=== PATIENT | male | born 1995 | race Two or more races ===

== ENCOUNTER 2024-07-26 13:11 | Emergency (ER) | payer MEDICAID, SELFPAY ==
[2024-07-26 13:29] VITALS: BP 134/83; PULSE 69; RESP 16; TEMP 36.5; O2SAT 99; BMI 25.8
--- NOTE | 2024-07-26 13:34 | XR_ITS ---
Examination: CT abdomen and pelvis without contrast. Coronal 3-D reconstructions. Sagittal 2-D reconstructions. Date and time of exam:July 26, 2024 1355 hours INDICATIONS: Onset right lower abdominal pain today CTDI: vol (mGy): 6.36 DLP: (mGycm): 383 Technique: Axial images of the abdomen have been obtained, 3 mm slice thickness Intravenous contrast material has not been administered. Low dose protocols were performed. One or more of the following dose reduction techniques were used; automated exposure control, adjustment of the mA and/or KV according to patient size, use of iterative reconstruction technique. Findings: No focal liver or splenic lesions No gallstones No pancreatic or adrenal mass 4 mm soft calcification mid to lower pole right kidney, coronal image 89 No hydronephrosis or ureteral calculi Aorta normal size Normal appendix No bowel obstruction No bladder calculi No prostatomegaly Osseous structures are intact IMPRESSION: 4 mm soft calculus mid to lower pole right kidney, no hydronephrosis or ureteral calculi Normal appendix
--- NOTE | 2024-07-26 13:34 | PD.EDRME ---
Rapid Medical Screening Exam [facility] Arrival date/time: 07/26/24 13:11 29-year-old male presents emergency department complaint of abdominal pain nausea vomiting x 1 week Chief Complaint: Abdominal Pain Vital signs: Vital Signs Temperature 97.7 F 07/26/24 13:29 Pulse Rate 69 07/26/24 13:29 Respiratory Rate 16 07/26/24 13:29 Blood Pressure 134/83 H 07/26/24 13:29 Pulse Oximetry (%) 99 07/26/24 13:29 Oxygen Delivery Method Room Air 07/26/24 13:29
[2024-07-26] MEDS: ONDANSETRON ODT 4 MG TABRAP PO (14:07)
[2024-07-26 14:37] LABS: Basophils % (Auto) 0 % (0-2.5); Eosinophils % (Auto) 0 % (0-10); Hematocrit 46.7 % (41.0-53.0); Immature Granulocytes % (Auto) 0 % (0-0); Immature Granulocytes Auto 0.01 Thou/mm3 (0.00-0.00); Lymphocytes # (Auto) 1.5 Thou/mm3 (1.0-4.8); Lymphocytes % (Auto) 26 % (10-50); Mean Corpuscular HGB Conc 34.3 g/dl (31.0-37.0); Mean Corpuscular Hemoglobin 31.1 pg (25.0-35.0); Mean Corpuscular Volume 91 fL (80-100); Monocytes # (Auto) 0.5 Thou/mm3 (0.0-0.8); Monocytes % (Auto) 9 % (0-12); Neutrophils # (Auto) 3.6 Thou/mm3 (1.8-7.7); Neutrophils % (Auto) 64 % (37-80); Nucleated Red Blood Cell % 0 /100 WBC (0); Platelet Count 227 Thou/mm3 (140-440); RDW Standard Deviation 41.5 fL (35.1-43.9); Red Blood Count 5.15 Miln/mm3 (4.50-5.90); White Blood Count 5.6 Thou/mm3 (3.8-10.6)
[2024-07-26 14:59] LABS: Collection Type, Urine Clean Catch
[2024-07-26 15:00] LABS: Alanine Aminotransferase 17 U/L (10-49); Albumin, Serum 5.1 gm/dL (3.5-5.0); Albumin/Globulin Ratio 1.9 (1.2-2.2); Alkaline Phosphatase 130 U/L (46-116); Anion Gap 6 (7-16); Aspartate Amino Transferase 16 U/L (0-34); BUN/Creatinine Ratio 11 Ratio (12-20); Bilirubin,Total 0.9 mg/dL (0.3-1.2); Blood Urea Nitrogen 12 mg/dL (9-23); Calcium 9.8 mg/dL (8.3-10.6); Calcium (Corrected) 9.8 mg/dL (8.5-10.1); Carbon Dioxide 30.7 mMol/L (20.0-31.0); Chloride 103 mMol/L (98-107); Creatinine (Component) 1.1 mg/dL (0.6-1.3); Globulin 2.7 gm/dL (2.3-3.5); Glucose 68 mg/dL (74-106); Lipase 33 U/L (12-53); Osmolality,Calculated 277 (275-295); Sodium 140 mMol/L (136-145); Total Protein 7.8 gm/dL (5.7-8.2); eGFR > 60 See Note
[2024-07-26 15:30] LABS: Bilirubin,Urine Negative (Negative); Blood,Urine Negative (Negative); Clarity,Urine Clear (Clear/Hazy); Color,Urine Yellow (Lt Yel-Yel); Culture Indicated,Urine Not Indicated; Glucose, Urine Negative (Negative); Ketones,Urine Negative (Negative); Leukocyte Esterase,Urine Negative (Negative); Nitrite,Urine Negative (Negative); Protein,Urine Trace (Neg - Trace); RBC,Urine 3 /hpf (0-3); Specific Gravity,Urine 1.028 (1.001-1.035); Squamous Epithelial Cell,Urine < 1 /hpf (0-5); Urobilinogen,Urine Negative mg/dL (0.0-1.0); WBC,Urine 2 /hpf (0-5)
[2024-07-26 15:41] LABS: Amphetamine/Methamp Scrn,U Negative (Negative); Barbiturate Screen,Urine Negative (Negative); Benzodiazepines Screen,Urine Negative (Negative); Benzoylecgonine Screen, Ur Negative (Negative); Fentanyl Screen,Urine Negative (Negative); Opiate Screen,Urine Negative (Negative); THC Screen,Urine Positive (Negative)
--- NOTE | 2024-07-26 17:31 | PD.EDRME ---
Rapid Medical Screening Exam RME Arrival date/time: 07/26/24 13:11 07/26/24 13:11 29-year-old male presents emergency department complaint of abdominal pain nausea vomiting x 1 week Chief Complaint: Abdominal Pain Time Seen by Provider: 07/26/24 17:31 Vital signs: Vital Signs Temperature 97.7 F 07/26/24 13:29 Pulse Rate 69 07/26/24 13:29 Respiratory Rate 16 07/26/24 13:29 Blood Pressure 134/83 H 07/26/24 13:29 Pulse Oximetry (%) 99 07/26/24 13:29 Oxygen Delivery Method Room Air 07/26/24 13:29 RME Narrative: 07/26/24 13:11 29-year-old male presents emergency department complaint of abdominal pain nausea vomiting x 1 week
--- NOTE | 2024-07-26 17:36 | PC.NURSE ---
CALLED FROM LOBBY AND NO ANSWER
--- NOTE | 2024-07-26 17:55 | PC.NURSE ---
CALLED FROM LOBBY AND NO ANSWER
--- NOTE | 2024-07-26 19:21 | PC.NURSE ---
CALLED PT IN ER LOBBY AND OUTSIDE OF ER AND NO ANSWER AT THIS TIME.
== END 2024-07-26 19:21 | disposition left against medical advice (07) ==
LOC: SERX 14:12
PROVIDERS: Nurse Practitioner Primary Care; Emergency Provider Emergency Medicine
DX: R10.31 Right lower quadrant pain (principal); R11.2 Nausea with vomiting, unspecified
CPT/HCPCS: 36415; 74176; 80053; 80307; 81001; 83690; 85025; 99281; Q0162

== ENCOUNTER 2024-07-27 12:33 | Emergency (ER) | payer MEDICAID, SELFPAY ==
[2024-07-27 12:49] VITALS: BP 121/74; PULSE 58; RESP 18; TEMP 37; O2SAT 98; BMI 26.6
--- NOTE | 2024-07-27 12:51 | EDNOTE_ITS ---
Nausea/Vomit./Diarrhea-RME/HPI General Chief complaint: Nausea/Vomiting/Diarrhea Stated complaint: havent ate in 3 days. n/v Time Seen by Provider: 07/27/24 12:47 Arrival date/time: 07/27/24 12:33 RME / HPI RME / HPI Narrative: 29-year-old male patient with significant history of marijuana abuse, came in for evaluation regarding nausea and vomiting. Patient's been having worsening nausea vomiting, for the last 3 days, cannot take anything down, and complaining also of right lower quadrant pain for the last 1 to 2 days. Patient told me that he had his symptoms in the past also but have not seen a doctor for this. Denies any fever. Denies any diarrhea. Denies any constipation. Denies any other complaints. No medication was taken prior to arrival. Related Data Previous Rx's ?Medication ?Instructions ?Recorded metoclopramide HCl 10 mg tablet 10 mg PO Q6H PRN nausea and 07/27/24 (Reglan) vomiting #20 tabs pantoprazole 40 mg tablet,delayed 40 mg PO QDAY #30 tabs 07/27/24 release (Protonix) Allergies Allergy/AdvReac Type Severity Reaction Status Date / Time No Known Allergies Allergy Verified 07/27/24 12:35 Review of Systems Review of Systems Narrative Review of Systems: Review of system reviewed and within normal limits except mentioned in HPI ED Exam Narrative Physical exam: VITAL SIGNS: Reviewed. GENERAL APPEARANCE: Alert and interactive, follows commands, no acute distress, HEAD AND FACE: Non-traumatic. ENT: PERRL, pink conjunctivitis, eyelid no trauma, Mucous membrane moist. NECK: Supple, nontender, no nuchal rigidity. CHEST: No tenderness, no crepitus, no paradoxical movement, no retractions. LUNGS: Clear, well ventilated, symmetric, no rales, no wheezing, no ronchi, no stridor, good breath sounds bilaterally. HEART: Regular rate, regular rhythm, no murmur, no gallops. ABDOMEN: Soft, positive bowel sounds, nondistended, no guarding, right lower quadrant tenderness, no rebound, no masses, RECTAL: Deferred. GENITAL: Deferred. NEUROLOGICAL: Gross motor function intact sensory function intact, Appropriate for age. MUSCULOSKELETAL: low back nontender, full range of motion. EXTREMITIES: Nontender, full range of motion. SKIN: Color pink, dry, no rash, no lacerations, no abrasions, no contusions. LYMPHATICS: Deferred. Course Quality Measures none Orders Category Date Time Status CBC Stat Lab 07/27/24 13:08 Completed Comprehensive Metabolic Panel Stat Lab 07/27/24 13:08 Completed Drug Screen,Urine Stat Lab 07/27/24 13:01 Completed Lipase Stat Lab 07/27/24 13:08 Completed Prothrombin Time with INR Stat Lab 07/27/24 13:08 Completed UA, C/S IF [Urinalysis, C/S if Indicated] Stat Lab 07/27/24 13:01 Completed DiphenhydrAMINE INJ [Benadryl Inj] Med 07/27/24 12:51 Discontinued 25 mg IV X1 ONE Famotidine Inj [Pepcid Inj] Med 07/27/24 12:50 Discontinued 20 mg IVP X1 ONE Metoclopramide Inj [Reglan Inj] Med 07/27/24 12:50 Discontinued 10 mg IVP X1 ONE Sodium Chloride 0.9% 1000 ml [Ns] 1,000 ml Med 07/27/24 12:51 Discontinued IV 999 mls/hr Vital Signs Vital signs: Vital Signs Temperature 98.6 F 07/27/24 12:49 Pulse Rate 58 L 07/27/24 12:49 Respiratory Rate 18 07/27/24 12:49 Blood Pressure 121/74 07/27/24 12:49 Pulse Oximetry (%) 98 07/27/24 12:49 Oxygen Delivery Method Room Air 07/27/24 12:49 Nausea/Vomiting/Diarrhea MDM Narrative MDM Narrative:: 29-year-old male patient with significant history of marijuana abuse, came in for evaluation regarding nausea and vomiting. Patient's been having worsening nausea vomiting, for the last 3 days, cannot take anything down, and complaining also of right lower quadrant pain for the last 1 to 2 days. Patient told me that he had his symptoms in the past also but have not seen a doctor for this. Denies any fever. Denies any diarrhea. Denies any constipation. Denies any other complaints. No medication was taken prior to arrival. Patient's workup today all came back unremarkable. I did not pursue with a CT scan of the abdomen and pelvis since this was done yesterday and I reviewed it and it came back unremarkable. Patient was given IV fluids, Benadryl, Pepcid, and Reglan with complete resolution of symptoms. Patient was advised to stop abusing marijuana which could be the reason for his vomiting. Patient agrees with the plan. Patient data External records reviewed:: None Clinical information provided by:: patient Social determinants that could affect healthcare access:: substance use Patient has the following chronic illnesses:: None How is presenting disease/condition affected by chronic disease/condition?: no chronic disease Evaluation data The following diagnostics were reviewed and interpreted by me:: lab results Lab and/or radiology exams considered but not ordered:: None Interpretation Summary: Patient's workup all came back unremarkable Medications / Prescriptions Medications / Prescriptions considered but not ordered:: None Medication administrations:: Medication Administration History Discontinued Medications Diphenhydramine HCl (Diphenhydramine Inj 50 Mg/Ml Vial) 25 mg IV X1 ONE Stop: 07/27/24 12:52 Last Admin: 07/27/24 16:29 Dose: 25 mg Documented By: DOC Famotidine (Famotidine Inj 10 Mg/Ml Vial 2 Ml) 20 mg IVP X1 ONE Stop: 07/27/24 12:51 Last Admin: 07/27/24 16:22 Dose: 20 mg Documented By: DOC Sodium Chloride (Ns) 1,000 mls @ 999 mls/hr IV .Q1H1M ONE Stop: 07/27/24 13:51 Last Admin: 07/27/24 16:20 Dose: 999 mls/hr Documented By: DOC Metoclopramide HCl (Metoclopramide Inj 5 Mg/Ml Vial 2 Ml) 10 mg IVP X1 ONE; Protocol Stop: 07/27/24 12:51 Last Admin: 07/27/24 16:21 Dose: 10 mg Documented By: DOC IV fluids Reglan Pepcid and Benadryl Consultations Consultation(s) initiated? (list below): No Diagnosis Nausea Differential Diagnosis: traveler's diarrhea, food poisoning and gastroenteritis Most likely diagnosis given after review of the tests above:: Cannabinoid hyperemesis syndrome Admission Indicated Admission indicated?: not indicated Admission Request Was there a request for admission?: No Disposition Plan Disposition Plan: Discharge Discharge Attestation Discharge Attestation: The patient was given an opportunity to ask questions and understood the discharge instructions. Discharge instructions specifically effects, indications for sooner follow up or return to the emergency department, and the expected course of current diagnosis. Patient condition: Stable Discharge Plan Plan Patient Disposition: HOME (Self Care) Disposition Comment: Stable Prescriptions/Referrals Prescriptions/Med Rec: New metoclopramide HCl [Reglan] 10 mg tablet 10 mg PO Q6H PRN (Reason: nausea and vomiting) Qty: 20 0RF pantoprazole [Protonix] 40 mg tablet,delayed release (DR/EC) 40 mg PO QDAY Qty: 30 0RF Referrals: Issa Moreno MD [Primary Care Provider] - In 1 week Problem List Clinical Impression: Cannabinoid hyperemesis syndrome Patient/Caregiver Discharge Instructions Discharge Activity: activity as tolerated Education Materials: ED Vomiting (Adult) Additional Instructions: Thank you for the opportunity for serving you today. You are stable for discharged . You are advised to: Follow-up with your PCP in 1 to 2 days Return to ED for worsening of symptoms Increase oral fluids Take medication as prescribed Please stop abusing marijuana because this is the reason why you are vomiting a lot. Print Language: Citizen [place] Stand Alone Forms: Breanna Award Info., Patient Portal Info Letter PRADIP/FRAN Supervising Physician PRADIP/FRAN Supervising Physician: MD Angie
[2024-07-27 13:09] LABS: Collection Type, Urine Clean Catch; Squamous Epithelial Cell,Urine 0 /hpf (0-5)
[2024-07-27 13:15] LABS: Basophils % (Auto) 0 % (0-2.5); Eosinophils % (Auto) 1 % (0-10); Hemoglobin 15.5 g/dL (13.5-16.0); Immature Granulocytes % (Auto) 0 % (0-0); Immature Granulocytes Auto 0.01 Thou/mm3 (0.00-0.00); Lymphocytes # (Auto) 1.4 Thou/mm3 (1.0-4.8); Lymphocytes % (Auto) 29 % (10-50); Mean Corpuscular HGB Conc 35.2 g/dl (31.0-37.0); Mean Corpuscular Hemoglobin 31.8 pg (25.0-35.0); Mean Corpuscular Volume 90 fL (80-100); Monocytes # (Auto) 0.4 Thou/mm3 (0.0-0.8); Monocytes % (Auto) 7 % (0-12); Neutrophils # (Auto) 3.1 Thou/mm3 (1.8-7.7); Neutrophils % (Auto) 63 % (37-80); Nucleated Red Blood Cell % 0 /100 WBC (0); Platelet Count 218 Thou/mm3 (140-440); RDW Standard Deviation 41.3 fL (35.1-43.9); Red Blood Count 4.88 Miln/mm3 (4.50-5.90)
[2024-07-27 13:28] LABS: Bilirubin,Urine Negative (Negative); Blood,Urine Negative (Negative); Clarity,Urine Clear (Clear/Hazy); Color,Urine Yellow (Lt Yel-Yel); Culture Indicated,Urine Not Indicated; Glucose, Urine Negative (Negative); Ketones,Urine Negative (Negative); Leukocyte Esterase,Urine Negative (Negative); Nitrite,Urine Negative (Negative); Protein,Urine Trace (Neg - Trace); RBC,Urine 2 /hpf (0-3); Specific Gravity,Urine 1.027 (1.001-1.035); Urobilinogen,Urine Negative mg/dL (0.0-1.0); WBC,Urine 1 /hpf (0-5)
[2024-07-27 13:32] LABS: INR 1.2 (0.9-1.3); Prothrombin Time 12.7 Seconds (9.0-12.2)
[2024-07-27 13:35] LABS: Amphetamine/Methamp Scrn,U Negative (Negative); Barbiturate Screen,Urine Negative (Negative); Benzodiazepines Screen,Urine Negative (Negative); Benzoylecgonine Screen, Ur Negative (Negative); Fentanyl Screen,Urine Negative (Negative); Opiate Screen,Urine Negative (Negative); THC Screen,Urine Positive (Negative)
[2024-07-27 13:36] LABS: Alanine Aminotransferase 18 U/L (10-49); Albumin, Serum 5.2 gm/dL (3.5-5.0); Albumin/Globulin Ratio 2.2 (1.2-2.2); Alkaline Phosphatase 123 U/L (46-116); Anion Gap 7 (7-16); Aspartate Amino Transferase 18 U/L (0-34); BUN/Creatinine Ratio 9 Ratio (12-20); Bilirubin,Total 0.9 mg/dL (0.3-1.2); Blood Urea Nitrogen 10 mg/dL (9-23); Calcium 9.9 mg/dL (8.3-10.6); Calcium (Corrected) 9.9 mg/dL (8.5-10.1); Carbon Dioxide 29.6 mMol/L (20.0-31.0); Chloride 102 mMol/L (98-107); Creatinine (Component) 1.1 mg/dL (0.6-1.3); Estimated Creatinine Clearance 87.7 mL/min (>60); Globulin 2.4 gm/dL (2.3-3.5); Glucose 93 mg/dL (74-106); Lipase 28 U/L (12-53); Osmolality,Calculated 276 (275-295); Potassium 4.2 mMol/L (3.4-5.1); Sodium 139 mMol/L (136-145); Total Protein 7.6 gm/dL (5.7-8.2); eGFR > 60 See Note
[2024-07-27] MEDS: SODIUM CHLORIDE 0.9% 1000 ML 1,000 ML 999 ML IV (16:20)
[2024-07-27] MEDS: METOCLOPRAMIDE INJ 5 MG/ML VIAL 2 ML 10 MG IVP (16:21)
[2024-07-27] MEDS: FAMOTIDINE INJ 10 MG/ML VIAL 2 ML 20 MG IVP (16:22)
[2024-07-27] MEDS: DiphenhydrAMINE INJ 50 MG/ML VIAL 25 MG IV (16:29)
[2024-07-27 16:31] VITALS: BP 142/82; PULSE 63; RESP 17; TEMP 36.7; O2SAT 99
[2024-07-27 16:55] VITALS: BP 142/82; PULSE 72; RESP 17; TEMP 37.4; O2SAT 98
== END 2024-07-27 17:02 | disposition home or self-care (01) ==
PROVIDERS: Nurse Practitioner Family; Emergency Provider Emergency Medicine; PCP Family Medicine
DX: R11.2 Nausea with vomiting, unspecified (principal); F12.90 Cannabis use, unspecified, uncomplicated
CPT/HCPCS: 36415; 80053; 80307; 81001; 83690; 85025; 85610; 96374; 96375; 99284; J1200; J2765; J3490; J7030